=== PATIENT | male | born 1935 | race Caucasian/White ===

== ENCOUNTER 2022-07-19 14:11 | Inpatient (IN) ==
[2022-07-19] MEDS ORDERED: NORCO 5/325 MG TAB PO PRN (15:17)
[2022-07-19 15:43] VITALS: BMI 25.8
[2022-07-19 15:52] LABS: BASOPHILS # (AUTO) 0.1 X10^3/uL (0.0-0.1); BASOPHILS % (AUTO) 1.2 % (0.2-1.0); EOSINOPHILS # (AUTO) 0.2 x10^3/uL (0.0-0.2); EOSINOPHILS % (AUTO) 3.1 % (0.9-2.9); HEMATOCRIT 32.5 % (42.0-54.0); HEMOGLOBIN 10.5 g/dL (13.5-18.0); LYMPHOCYTES # (AUTO) 0.9 X10^3/uL (1.3-2.9); LYMPHOCYTES % (AUTO) 15.7 % (21.0-51.0); MEAN CORPUSCULAR HEMOGLOBIN 28.3 pg (27.0-34.0); MEAN CORPUSCULAR HGB CONC 32.4 g/dL (33.0-35.0); MEAN CORPUSCULAR VOLUME 87.5 fL (80.0-100.0); MEAN PLATELET VOLUME 9.7 fL (7.4-11.0); MONOCYTES # (AUTO) 0.4 x10^3/uL (0.3-0.8); MONOCYTES % (AUTO) 7.3 % (0.0-13.0); NEUTROPHILS # (AUTO) 4.1 x10^3/uL (2.2-4.8); NEUTROPHILS % (AUTO) 72.7 % (42.0-75.0); RED BLOOD COUNT 3.71 X10^6/uL (4.7-6.0); RED CELL DISTRIBUTION WIDTH 17.6 % (11.6-16.5); WHITE BLOOD COUNT 5.7 X10^3/uL (3.6-10.0)
[2022-07-19] MEDS: LASIX PO SCH (16:02)
[2022-07-19] MEDS: SYNTHROID 88 mcg TAB PO SCH (16:02)
[2022-07-19] MEDS: LANOXIN or DIGITEK PO SCH (16:02)
[2022-07-19] MEDS: ZOLOFT PO SCH (16:03)
[2022-07-19 16:08] LABS: ALANINE AMINOTRANSFERASE 38 Units/L (12-78); ALBUMIN 3.5 g/dL (3.4-5.0); ALKALINE PHOSPHATASE 90 Units/L (46-116); ASPARTATE AMINO TRANSFERASE 35 Units/L (15-37); BLOOD UREA NITROGEN 56 mg/dL (7-18); CALCIUM 8.5 mg/dL (8.5-10.1); CARBON DIOXIDE 24.5 mmol/L (21-32); CHLORIDE 104 mmol/L (98-107); COR NA(FOR HYPERGLY) 140 mmol/L (136-145); CREATININE 2.37 mg/dL (0.70-1.30); DIGOXIN 0.75 ng/mL (0.9-2); MAGNESIUM 2.1 mg/dL (2.0-2.9); SODIUM 138 mmol/L (136-145); TOTAL PROTEIN 7.4 g/dL (6.4-8.2); eGFR NON BLACK RACES 28 (>60)
[2022-07-19] MEDS: NS 1,000 ML IV 1,000 ML IV SCH (16:12)
[2022-07-19] MEDS: VISTARIL PO SCH ×2 (17:35→21:23)
[2022-07-19 18:01] LABS: BILIRUBIN,URINE NEGATIVE (NEGATIVE); BLOOD/HEMOGLOBIN,URINE NEGATIVE (NEGATIVE); GLUCOSE, URINE NEGATIVE (NEGATIVE); KETONES,URINE NEGATIVE (NEGATIVE); LEUKOCYTE ESTERASE ,URINE NEGATIVE (NEGATIVE); NITRITES,URINE NEGATIVE (NEGATIVE); PROTEIN,URINE NEGATIVE (NEGATIVE); UROBILINOGEN,URINE NORMAL (NORMAL)
[2022-07-19 18:03] LABS: APPEARANCE,URINE CLEAR (CLEAR); COLOR,URINE PALE YELLOW (YELLOW)
--- NOTE | 2022-07-19 18:10 | DR.H&P ---
H&P - History & Physical for Day of: H&P Date: 07/19/22 - Chief Complaint Chief Complaint: severe pain to right eye and head - History of Present Illness History of Present Illness: PT IS A 87 WM, ADMITTED FROM DR VALLE OFFICE FOR UNCONTROLLED PHN. PT WAS DIAGNOSED WITH SHINGLES ~3 WEEKS AGO AND COMPLETED ORAL VALTREX AND PO STEROIDS. PT WAS TREATED WITH GABAPENT AND LYRICA WITH POOR SIDE EFFECTS INCLUDING HALUCINATIONS. PT WAS REFERRED BY DR NICOLE FOR TREATMENT OF PERSISTENT NEURALGIA. PT HAD CT OF HIS HEAD IN THE ER THIS PAST WEEK. PT REPORTS PMH OF HTN, RENAL DISEASE, AFIB, OA, CVA. PT WAS STARTED ON TRILEPTAL RECOMMENDED BY NEUROLOGY AND COMPLAINED SEVERE BURNING ALL OVER HIS BODY WITH CONFUSION AND RESTLESSNESS. - Past Medical History Past Medical History: Arthritis, Coronary Artery Disease, CVA, Dyslipidemia, GERD, Hypertension, Hypothyroidism Additional Medical History: AFIB - Past Surgical History Surgical History: Cholecystectomy - Family History Family Medical History: Coronary Artery Disease, Heart Failure, Sudden Cardiac , Hypertension - Social History Does patient currently use any type of tobacco product: No Have you used tobacco products in the last 12 months: No Alcohol Use: None Drug Use: None - Medications Home Medications: gabapentin Allergy (Unknown, Verified 07/19/22 16:04) allopurinol Allergy (Verified 07/19/22 16:04) oxcarbazepine [From Trileptal] Allergy (Verified 07/19/22 17:05) pregabalin [From Lyrica] Allergy (Verified 07/16/22 06:32) CONTINUE taking the following medications amitriptyline 10 mg tablet 1 tab PO QPM 07/19/22 [History] atorvastatin 80 mg tablet 1 tab PO QDAY 07/19/22 [History] hydrocodone 7.5 mg-acetaminophen 325 mg tablet 1 tab PO QID PRN 07/19/22 [History] levothyroxine 88 mcg tablet 1 tab PO QDAY 07/19/22 [History] lorazepam 1 mg tablet 0.5 - 1 tab PO TID PRN 07/19/22 [History] meclizine 25 mg tablet 1 tab PO TID PRN vertigo 07/19/22 [History] metoprolol tartrate 25 mg tablet 1 tab PO BID 07/19/22 [History] prednisone 2.5 mg tablet 1 tab PO BID 07/19/22 [History] rivaroxaban 15 mg tablet (Xarelto) 1 tab PO QPM 07/19/22 [History] sertraline 50 mg tablet 1 tab PO QDAY 07/19/22 [History] tamsulosin 0.4 mg capsule 1 cap PO QPM 07/19/22 [History] valacyclovir 1 gram tablet 1 tab PO TID 07/19/22 [History] - Review of Systems Constitutional: Weakness, Malaise Eyes: Pain ENT: No Symptoms Reported Respiratory: No Symptoms Reported Cardiovascular: No Symptoms Reported Gastrointestinal: Nausea Genitourinary: No Symptoms Reported Musculoskeletal: No Symptoms Reported Skin: No Symptoms Reported Neurological: Weakness, Confusion, Other (INTENSE HEADACHES) - Physical Exam Vital Signs: Temperature 97.5 F Pulse Rate [Right Radial] 101 Respiratory Rate 20 Blood Pressure [Right Arm] 156/76 Blood Pressure 147/65 O2 Sat by Pulse Oximetry 96 Eyes: Pain (LOCALIZED TO RIGHT EYE (UNDER CARE OF FAMILY VISION)) Ear: Normal Nose: Normal Throat: Normal Respiratory: Clear Throughout Cardiovascular: Irregular (AFIB). negative: Murmur, Edema : Normal Auscultation: Bowel Sounds: Normal Palpation: Normal Tenderness: Normal Skin: Decreased Turgur, Red (VERY MILD REDNESS LOCALIZED TO RIGHT FACE WITHOUT ANY LESIONS) Musculoskeletal: Normal Psychiatric: Anxiety Mood Description: Depressed Affect: Anxious, Depressed Speech Pattern: Clear, Appropriate - Assessment/Plan (1) Post herpetic neuralgia Status: Acute Plan: ADMIT, PAIN CONTROL. GENTLE IV HYDRATION, VERIFY HOME MEDICATION. ADMISSION LABS, DIGOXIN LEVEL. FALL PRECAUTIONS, BP CONTROL (2) Afib Status: Acute (3) Hypertension Status: Acute (4) Renal disease Status: Acute (5) Herpes zoster with ophthalmic complication Qualifiers: Herpes zoster ocular complication detail: keratoconjunctivitis Qualified Code(s): B02.33 - Zoster keratitis Status: Acute (6) Medication reaction Status: Acute - Allergies Allergies/Adverse Reactions: Allergies Allergy/AdvReac Type Severity Reaction Status Date / Time gabapentin Allergy Unknown Verified 07/19/22 16:04 allopurinol Allergy Verified 07/19/22 16:04 oxcarbazepine Allergy Verified 07/19/22 17:05 [From Trileptal] pregabalin [From Lyrica] Allergy Verified 07/16/22 06:32
[2022-07-19] MEDS: SEROquel TAB 25 mg PO SCH (20:39)
[2022-07-19] MEDS: FLOMAX PO SCH (20:40)
[2022-07-19] MEDS: LOPRESSOR TAB 25 MG PO SCH (20:40)
[2022-07-19] MEDS: XARELTO PO SCH (20:40)
[2022-07-19] MEDS: COLACE CAP 100 MG PO SCH (20:40)
[2022-07-20] MEDS: NORCO 5/325 MG TAB PO PRN ×4 (02:21→19:09)
[2022-07-20] MEDS: VISTARIL PO SCH ×3 (05:24→21:18)
[2022-07-20] MEDS: NS 1,000 ML IV 1,000 ML IV SCH ×3 (05:24→22:10)
[2022-07-20 06:38] LABS: BASOPHILS % (AUTO) 0.8 % (0.2-1.0); EOSINOPHILS # (AUTO) 0.2 x10^3/uL (0.0-0.2); EOSINOPHILS % (AUTO) 3.6 % (0.9-2.9); HEMATOCRIT 31.2 % (42.0-54.0); HEMOGLOBIN 10.3 g/dL (13.5-18.0); LYMPHOCYTES # (AUTO) 0.9 X10^3/uL (1.3-2.9); LYMPHOCYTES % (AUTO) 14.7 % (21.0-51.0); MEAN CORPUSCULAR HEMOGLOBIN 28.7 pg (27.0-34.0); MEAN CORPUSCULAR VOLUME 87.1 fL (80.0-100.0); MONOCYTES # (AUTO) 0.6 x10^3/uL (0.3-0.8); MONOCYTES % (AUTO) 9.3 % (0.0-13.0); NEUTROPHILS # (AUTO) 4.3 x10^3/uL (2.2-4.8); NEUTROPHILS % (AUTO) 71.6 % (42.0-75.0); RED BLOOD COUNT 3.58 X10^6/uL (4.7-6.0); RED CELL DISTRIBUTION WIDTH 17.5 % (11.6-16.5)
[2022-07-20 06:52] LABS: ALANINE AMINOTRANSFERASE 36 Units/L (12-78); ALBUMIN 3.4 g/dL (3.4-5.0); ALKALINE PHOSPHATASE 92 Units/L (46-116); ASPARTATE AMINO TRANSFERASE 32 Units/L (15-37); BLOOD UREA NITROGEN 51 mg/dL (7-18); CALCIUM 8.4 mg/dL (8.5-10.1); CARBON DIOXIDE 21.1 mmol/L (21-32); CHLORIDE 105 mmol/L (98-107); CREATININE 2.14 mg/dL (0.70-1.30); SODIUM 137 mmol/L (136-145); TOTAL PROTEIN 7.2 g/dL (6.4-8.2); eGFR NON BLACK RACES 31 (>60)
[2022-07-20] MEDS: LOPRESSOR TAB 25 MG PO SCH ×2 (08:53→21:19)
[2022-07-20] MEDS: SYNTHROID 88 mcg TAB PO SCH (08:53)
[2022-07-20] MEDS: ZOLOFT PO SCH (08:53)
[2022-07-20] MEDS: LASIX PO SCH (08:53)
[2022-07-20] MEDS: PROTONIX INJ 40 MG VIAL IVP SCH (08:54)
[2022-07-20] MEDS: MORPHINE SULFATE INJ 2 MG INJ IVP PRN ×4 (09:00→21:25)
--- NOTE | 2022-07-20 13:15 | PCM.PROG ---
Progress Note - Progress Note for Day of Date of Exam: 07/20/22 - Subjective Subjective: PT IS A 87 WM, ADMITTED FROM DR VALLE OFFICE FOR UNCONTROLLED PHN. PT WAS DIAGNOSED WITH SHINGLES ~3 WEEKS AGO AND COMPLETED ORAL VALTREX AND PO STEROIDS. PT WAS TREATED WITH GABAPENT AND LYRICA WITH POOR SIDE EFFECTS INCLUDING HALUCINATIONS. PT WAS REFERRED BY DR NICOLE FOR TREATMENT OF PERSISTENT NEURALGIA. PT HAD CT OF HIS HEAD IN THE ER THIS PAST WEEK. PT REPORTS PMH OF HTN, RENAL DISEASE, AFIB, OA, CVA. PT WAS STARTED ON TRILEPTAL RECOMMENDED BY NEUROLOGY AND COMPLAINED SEVERE BURNING ALL OVER HIS BODY WITH CONFUSION AND RESTLESSNESS. PT'S RENAL FUNCTION WAS SLIGHTLY IMPROVED THIS AM. PT REPORTS HIS PAIN HAS CONTINUED WITHOUT MINIMAL RELIEF WITH NORCO. WE ADDED MORPHINE FOR PAIN CONTROL. PT ALSO REPORTS HE HAS CONTINUED TO HAD RESTLESSNESS AND COULD NOT SLEEP ALL NIGHT DUE TO PAIN. - Past Medical Family Social History Past Med/Fam/Surg Hx: No changes since H&P Allergies: Allergies gabapentin Allergy (Unknown, Verified 07/19/22 16:04) allopurinol Allergy (Verified 07/19/22 16:04) oxcarbazepine [From Trileptal] Allergy (Verified 07/19/22 17:05) makes burn worse pregabalin [From Lyrica] Allergy (Verified 07/16/22 06:32) - Review of Systems ROS: No change since H&P - Vital Signs and I&O's Vital Signs: Temperature 97.7 F Pulse Rate [Right Radial] 68 Respiratory Rate 18 Blood Pressure [Right Arm] 160/75 Blood Pressure 147/65 O2 Sat by Pulse Oximetry 94 Intake and Output: Intake & Output 07/18/22 07/19/22 07/20/22 07/21/22 11:59 11:59 11:59 11:59 Intake Total 950 / 950 Output Total 200 / 200 Balance 750 / 750 - Physical Exam Oriented: Person Eyes: Pain (LOCALIZED TO RIGHT EYE (UNDER CARE OF FAMILY VISION)) Ear: Normal Nose: Normal Throat: Normal Respiratory: Diminished Cardiovascular: Irregular (AFIB). negative: Murmur, Edema : Normal Auscultation: Bowel Sounds: Normal Tenderness: Normal Skin: Decreased Turgur, Red (VERY MILD REDNESS LOCALIZED TO RIGHT FACE WITHOUT ANY LESIONS) Musculoskeletal: Normal Psychiatric: Anxiety Mood Description: Depressed Affect: Anxious, Depressed Speech Pattern: Clear, Appropriate - Laboratory and Diagnostics Result Diagrams: 07/20/22 05:15 07/20/22 05:15 Labs: Laboratory WBC 6.0 X10^3/uL (3.6-10.0) 07/20/22 05:15 RBC 3.58 X10^6/uL (4.7-6.0) L 07/20/22 05:15 Hgb 10.3 g/dL (13.5-18.0) L 07/20/22 05:15 Hct 31.2 % (42.0-54.0) L 07/20/22 05:15 MCV 87.1 fL (80.0-100.0) 07/20/22 05:15 MCH 28.7 pg (27.0-34.0) 07/20/22 05:15 MCHC 33.0 g/dL (33.0-35.0) 07/20/22 05:15 RDW 17.5 % (11.6-16.5) H 07/20/22 05:15 Plt Count 135 X10^3/uL (150.0-450.0) L 07/20/22 05:15 MPV 10.0 fL (7.4-11.0) 07/20/22 05:15 Neut % (Auto) 71.6 % (42.0-75.0) 07/20/22 05:15 Lymph % (Auto) 14.7 % (21.0-51.0) L 07/20/22 05:15 [place] % (Auto) 9.3 % (0.0-13.0) 07/20/22 05:15 Eos % (Auto) 3.6 % (0.9-2.9) H 07/20/22 05:15 Baso % (Auto) 0.8 % (0.2-1.0) 07/20/22 05:15 Neut # (Auto) 4.3 x10^3/uL (2.2-4.8) 07/20/22 05:15 Lymph # (Auto) 0.9 X10^3/uL (1.3-2.9) L 07/20/22 05:15 [place] # (Auto) 0.6 x10^3/uL (0.3-0.8) 07/20/22 05:15 Eos # (Auto) 0.2 x10^3/uL (0.0-0.2) 07/20/22 05:15 Baso # (Auto) 0.0 X10^3/uL (0.0-0.1) 07/20/22 05:15 Absolute Nucleated RBC 0.0 /100WBC 07/20/22 05:15 Sodium 137 mmol/L (136-145) 07/20/22 05:15 Corrected Sodium TNP 07/20/22 05:15 Potassium 3.8 mmol/L (3.5-5.1) 07/20/22 05:15 Chloride 105 mmol/L (98-107) 07/20/22 05:15 Carbon Dioxide 21.1 mmol/L (21-32) 07/20/22 05:15 BUN 51 mg/dL (7-18) H 07/20/22 05:15 Creatinine 2.14 mg/dL (0.70-1.30) H 07/20/22 05:15 Est GFR (MDRD) Af Amer 38 (>60) L 07/20/22 05:15 Est GFR (MDRD) Non-Af 31 (>60) L 07/20/22 05:15 Glucose 86 mg/dL (65-99) 07/20/22 05:15 Calcium 8.4 mg/dL (8.5-10.1) L 07/20/22 05:15 Corrected Calcium TNP 07/20/22 05:15 Magnesium 2.1 mg/dL (2.0-2.9) 07/19/22 15:41 Total Bilirubin 0.50 mg/dL (0.2-1.0) 07/20/22 05:15 AST 32 Units/L (15-37) 07/20/22 05:15 ALT 36 Units/L (12-78) 07/20/22 05:15 Alkaline Phosphatase 92 Units/L (46-116) 07/20/22 05:15 Total Protein 7.2 g/dL (6.4-8.2) 07/20/22 05:15 Albumin 3.4 g/dL (3.4-5.0) 07/20/22 05:15 Globulin 3.8 g/dL (2.5-4.5) 07/20/22 05:15 Albumin/Globulin Ratio 0.9 Ratio (1.1-2.1) L 07/20/22 05:15 Specimen Type Clean catch urine 07/19/22 17:50 Urine Color Pale yellow (YELLOW) 07/19/22 17:50 Urine Appearance Clear (CLEAR) 07/19/22 17:50 Urine pH 6.0 (5.0 - 8.0) 07/19/22 17:50 Ur Specific [place] 1.025 (1.000-1.030) 07/19/22 17:50 Urine Protein Negative (NEGATIVE) 07/19/22 17:50 Urine Glucose (UA) Negative (NEGATIVE) 07/19/22 17:50 Urine Ketones Negative (NEGATIVE) 07/19/22 17:50 Urine Blood Negative (NEGATIVE) 07/19/22 17:50 Urine Nitrite Negative (NEGATIVE) 07/19/22 17:50 Urine Bilirubin Negative (NEGATIVE) 07/19/22 17:50 Urine Urobilinogen Normal (NORMAL) 07/19/22 17:50 Ur Leukocyte Esterase Negative (NEGATIVE) 07/19/22 17:50 Digoxin 0.75 ng/mL (0.9-2) L 07/19/22 15:41 - Plan (1) Post herpetic neuralgia Status: Acute Plan: ADMIT,GENTLE IV HYDRATION, VERIFY HOME MEDICATION. ADMISSION LABS, DIGOXIN LEVEL. FALL PRECAUTIONS, BP CONTROL. PRN VISTARIL FOR ITCHING FROM MEDICATION REACTION PRIOR TO ADMISSION (2) Afib Status: Acute (3) Hypertension Status: Acute (4) Renal disease Status: Acute (5) Herpes zoster with ophthalmic complication Status: Acute Qualifiers: Herpes zoster ocular complication detail: keratoconjunctivitis Qualified Code(s): B02.33 - Zoster keratitis (6) Medication reaction Status: Acute
[2022-07-20] MEDS: FLOMAX PO SCH (21:18)
[2022-07-20] MEDS: XARELTO PO SCH (21:18)
[2022-07-20] MEDS: SEROquel TAB 25 mg PO SCH (21:19)
[2022-07-20] MEDS: COLACE CAP 100 MG PO SCH (21:19)
[2022-07-21] MEDS: NORCO 5/325 MG TAB PO PRN ×3 (01:14→17:18)
[2022-07-21] MEDS: MORPHINE SULFATE INJ 2 MG INJ IVP PRN (04:32)
[2022-07-21] MEDS: VISTARIL PO SCH ×3 (05:24→21:26)
[2022-07-21 06:30] LABS: BASOPHILS # (AUTO) 0.1 X10^3/uL (0.0-0.1); BASOPHILS % (AUTO) 1.2 % (0.2-1.0); EOSINOPHILS # (AUTO) 0.3 x10^3/uL (0.0-0.2); EOSINOPHILS % (AUTO) 4.7 % (0.9-2.9); HEMATOCRIT 33.8 % (42.0-54.0); HEMOGLOBIN 10.9 g/dL (13.5-18.0); LYMPHOCYTES % (AUTO) 17.6 % (21.0-51.0); MEAN CORPUSCULAR HEMOGLOBIN 28.4 pg (27.0-34.0); MEAN CORPUSCULAR HGB CONC 32.3 g/dL (33.0-35.0); MEAN CORPUSCULAR VOLUME 88.1 fL (80.0-100.0); MEAN PLATELET VOLUME 9.7 fL (7.4-11.0); MONOCYTES # (AUTO) 0.6 x10^3/uL (0.3-0.8); MONOCYTES % (AUTO) 10.9 % (0.0-13.0); NEUTROPHILS # (AUTO) 3.8 x10^3/uL (2.2-4.8); NEUTROPHILS % (AUTO) 65.6 % (42.0-75.0); RED BLOOD COUNT 3.83 X10^6/uL (4.7-6.0); RED CELL DISTRIBUTION WIDTH 17.8 % (11.6-16.5); WHITE BLOOD COUNT 5.8 X10^3/uL (3.6-10.0)
[2022-07-21 06:47] LABS: ALANINE AMINOTRANSFERASE 40 Units/L (12-78); ALBUMIN 3.6 g/dL (3.4-5.0); ALKALINE PHOSPHATASE 102 Units/L (46-116); ASPARTATE AMINO TRANSFERASE 36 Units/L (15-37); BLOOD UREA NITROGEN 48 mg/dL (7-18); CALCIUM 8.4 mg/dL (8.5-10.1); CHLORIDE 105 mmol/L (98-107); CREATININE 2.13 mg/dL (0.70-1.30); SODIUM 138 mmol/L (136-145); TOTAL PROTEIN 7.7 g/dL (6.4-8.2); eGFR NON BLACK RACES 31 (>60)
[2022-07-21] MEDS: SYNTHROID 88 mcg TAB PO SCH (09:25)
[2022-07-21] MEDS: ZOLOFT PO SCH (09:25)
[2022-07-21] MEDS: LOPRESSOR TAB 25 MG PO SCH ×2 (09:25→21:26)
[2022-07-21] MEDS: PROTONIX INJ 40 MG VIAL IVP SCH (09:25)
[2022-07-21] MEDS: LASIX PO SCH (09:25)
[2022-07-21] MEDS: DILAUDID INJ IVP PRN ×2 (14:05→17:00)
[2022-07-21] MEDS: NS 1,000 ML IV 1,000 ML IV SCH (14:06)
[2022-07-21] MEDS: LANOXIN or DIGITEK PO SCH (17:16)
[2022-07-21] MEDS: SEROquel TAB 25 mg PO SCH (21:26)
[2022-07-21] MEDS: XARELTO PO SCH (21:26)
[2022-07-21] MEDS: FLOMAX PO SCH (21:26)
[2022-07-21] MEDS: COLACE CAP 100 MG PO SCH (21:26)
[2022-07-22] MEDS: NS 1,000 ML IV 1,000 ML IV SCH ×3 (00:51→13:27)
[2022-07-22] MEDS: VISTARIL PO SCH ×3 (05:08→21:06)
[2022-07-22] MEDS: NORCO 5/325 MG TAB PO PRN ×2 (05:10→15:51)
[2022-07-22 05:47] LABS: BASOPHILS % (AUTO) 0.9 % (0.2-1.0); EOSINOPHILS # (AUTO) 0.2 x10^3/uL (0.0-0.2); EOSINOPHILS % (AUTO) 4.2 % (0.9-2.9); HEMATOCRIT 30.7 % (42.0-54.0); HEMOGLOBIN 10.1 g/dL (13.5-18.0); LYMPHOCYTES # (AUTO) 0.7 X10^3/uL (1.3-2.9); LYMPHOCYTES % (AUTO) 13.2 % (21.0-51.0); MEAN CORPUSCULAR HEMOGLOBIN 28.5 pg (27.0-34.0); MEAN CORPUSCULAR VOLUME 86.3 fL (80.0-100.0); MEAN PLATELET VOLUME 9.6 fL (7.4-11.0); MONOCYTES # (AUTO) 0.6 x10^3/uL (0.3-0.8); MONOCYTES % (AUTO) 10.7 % (0.0-13.0); NEUTROPHILS # (AUTO) 3.8 x10^3/uL (2.2-4.8); RED BLOOD COUNT 3.55 X10^6/uL (4.7-6.0); RED CELL DISTRIBUTION WIDTH 17.7 % (11.6-16.5); WHITE BLOOD COUNT 5.3 X10^3/uL (3.6-10.0)
[2022-07-22 05:59] LABS: ALANINE AMINOTRANSFERASE 39 Units/L (12-78); ALBUMIN 3.1 g/dL (3.4-5.0); ALKALINE PHOSPHATASE 97 Units/L (46-116); ASPARTATE AMINO TRANSFERASE 31 Units/L (15-37); BLOOD UREA NITROGEN 48 mg/dL (7-18); CALCIUM 8.1 mg/dL (8.5-10.1); CARBON DIOXIDE 24.3 mmol/L (21-32); CHLORIDE 107 mmol/L (98-107); COR CA(FOR HYPOALB) 8.8 mg/dL (8.5-10.1); CREATININE 2.31 mg/dL (0.70-1.30); SODIUM 139 mmol/L (136-145); TOTAL PROTEIN 6.7 g/dL (6.4-8.2); eGFR NON BLACK RACES 29 (>60)
[2022-07-22] MEDS: SYNTHROID 88 mcg TAB PO SCH (08:22)
[2022-07-22] MEDS: LOPRESSOR TAB 25 MG PO SCH ×2 (08:23→21:06)
[2022-07-22] MEDS: PROTONIX INJ 40 MG VIAL IVP SCH (08:23)
[2022-07-22] MEDS: ZOLOFT PO SCH (08:23)
[2022-07-22] MEDS: LASIX PO SCH (08:23)
[2022-07-22] MEDS: DILAUDID INJ IVP PRN (08:24)
--- NOTE | 2022-07-22 08:48 | PCM.PROG ---
Progress Note Progress Note for Day of Date of Exam: 07/21/22 Subjective Subjective: PT IS A 87 WM, ADMITTED FROM DR VALLE OFFICE FOR UNCONTROLLED PHN. PT WAS DIAGNOSED WITH SHINGLES ~3 WEEKS AGO AND COMPLETED ORAL VALTREX AND PO STEROIDS. PT WAS TREATED WITH GABAPENTIN AND LYRICA WITH POOR SIDE EFFECTS INCLUDING HALLUCINATIONS. PT WAS REFERRED BY DR NICOLE FOR TREATMENT OF PERSISTENT NEURALGIA. PT HAD CT OF HIS HEAD IN THE ER THIS PAST WEEK. PT REPORTS PMH OF HTN, RENAL DISEASE, AFIB, OA, CVA. PT WAS STARTED ON TRILEPTAL RECOMMENDED BY NEUROLOGY AND COMPLAINED SEVERE BURNING ALL OVER HIS BODY WITH CONFUSION AND RESTLESSNESS. THIS MORNING PATIENT RESTING IN BED. LABS: WBC 5.8, HGB 10.9, PLT 151, NA 138, K 3.6, CREATININE 2.13, GLUCOSE 87. HE STILL REPORTS PAIN HAS CONTINUED WITH BRIEF RELIEF FROM MORPHINE. WILL CHANGE MORPHINE TO DILAUDID FOR PAIN CONTROL. OTHERWISE WILL CONTINUE WITH CURRENT TREATMENT PLAN. CONTINUE TO MONITOR AND FOLLOW UP WITH AM LABS. Past Medical Family Social History Past Med/Fam/Surg Hx: No changes since H&P Allergies: Allergies gabapentin Allergy (Unknown, Verified 07/19/22 16:04) allopurinol Allergy (Verified 07/19/22 16:04) oxcarbazepine [From Trileptal] Allergy (Verified 07/19/22 17:05) makes burn worse pregabalin [From Lyrica] Allergy (Verified 07/16/22 06:32) Review of Systems ROS: No change since H&P Vital Signs and I&O's Vital Signs: Temperature 97.6 F Pulse Rate [Right Radial] 70 Pulse Rate 85 Respiratory Rate 23 Blood Pressure [Right Arm] 143/63 Blood Pressure 147/65 O2 Sat by Pulse Oximetry 95 Intake and Output: Intake & Output 07/19/22 07/20/22 07/21/22 07/22/22 23:59 23:59 23:59 23:59 Intake Total 530 / 530 2376 / 2376 2510 / 2510 442 / 442 Output Total 200 / 200 Balance 330 / 330 2376 / 2376 2510 / 2510 442 / 442 Physical Exam Oriented: Person Eyes: Pain (LOCALIZED TO RIGHT EYE (UNDER CARE OF FAMILY VISION)) Ear: Normal Nose: Normal Throat: Normal Respiratory: Diminished Cardiovascular: Irregular (AFIB); negative Murmur or Edema : Normal Auscultation: Bowel Sounds: Normal Tenderness: Normal Skin: Decreased Turgur and Red (VERY MILD REDNESS LOCALIZED TO RIGHT FACE WITHOUT ANY LESIONS) Musculoskeletal: Normal Psychiatric: Anxiety Mood Description: Depressed Affect: Anxious and Depressed Speech Pattern: Clear and Appropriate Laboratory and Diagnostics Result Diagrams: 07/22/22 05:17 07/22/22 05:17 Labs: Laboratory WBC 5.3 X10^3/uL (3.6-10.0) 07/22/22 05:17 RBC 3.55 X10^6/uL (4.7-6.0) L 07/22/22 05:17 Hgb 10.1 g/dL (13.5-18.0) L 07/22/22 05:17 Hct 30.7 % (42.0-54.0) L 07/22/22 05:17 MCV 86.3 fL (80.0-100.0) 07/22/22 05:17 MCH 28.5 pg (27.0-34.0) 07/22/22 05:17 MCHC 33.0 g/dL (33.0-35.0) 07/22/22 05:17 RDW 17.7 % (11.6-16.5) H 07/22/22 05:17 Plt Count 133 X10^3/uL (150.0-450.0) L 07/22/22 05:17 MPV 9.6 fL (7.4-11.0) 07/22/22 05:17 Neut % (Auto) 71.0 % (42.0-75.0) 07/22/22 05:17 Lymph % (Auto) 13.2 % (21.0-51.0) L 07/22/22 05:17 [place] % (Auto) 10.7 % (0.0-13.0) 07/22/22 05:17 Eos % (Auto) 4.2 % (0.9-2.9) H 07/22/22 05:17 Baso % (Auto) 0.9 % (0.2-1.0) 07/22/22 05:17 Neut # (Auto) 3.8 x10^3/uL (2.2-4.8) 07/22/22 05:17 Lymph # (Auto) 0.7 X10^3/uL (1.3-2.9) L 07/22/22 05:17 [place] # (Auto) 0.6 x10^3/uL (0.3-0.8) 07/22/22 05:17 Eos # (Auto) 0.2 x10^3/uL (0.0-0.2) 07/22/22 05:17 Baso # (Auto) 0.0 X10^3/uL (0.0-0.1) 07/22/22 05:17 Absolute Nucleated RBC 0.0 /100WBC 07/22/22 05:17 Sodium 139 mmol/L (136-145) 07/22/22 05:17 Corrected Sodium TNP 07/22/22 05:17 Potassium 4.2 mmol/L (3.5-5.1) 07/22/22 05:17 Chloride 107 mmol/L (98-107) 07/22/22 05:17 Carbon Dioxide 24.3 mmol/L (21-32) 07/22/22 05:17 BUN 48 mg/dL (7-18) H 07/22/22 05:17 Creatinine 2.31 mg/dL (0.70-1.30) H 07/22/22 05:17 Est GFR (MDRD) Af Amer 35 (>60) L 07/22/22 05:17 Est GFR (MDRD) Non-Af 29 (>60) L 07/22/22 05:17 Glucose 93 mg/dL (65-99) 07/22/22 05:17 Calcium 8.1 mg/dL (8.5-10.1) L 07/22/22 05:17 Corrected Calcium 8.8 mg/dL (8.5-10.1) 07/22/22 05:17 Magnesium 2.1 mg/dL (2.0-2.9) 07/19/22 15:41 Total Bilirubin 0.40 mg/dL (0.2-1.0) 07/22/22 05:17 AST 31 Units/L (15-37) 07/22/22 05:17 ALT 39 Units/L (12-78) 07/22/22 05:17 Alkaline Phosphatase 97 Units/L (46-116) 07/22/22 05:17 Total Protein 6.7 g/dL (6.4-8.2) 07/22/22 05:17 Albumin 3.1 g/dL (3.4-5.0) L 07/22/22 05:17 Globulin 3.6 g/dL (2.5-4.5) 07/22/22 05:17 Albumin/Globulin Ratio 0.9 Ratio (1.1-2.1) L 07/22/22 05:17 Specimen Type Clean catch urine 07/19/22 17:50 Urine Color Pale yellow (YELLOW) 07/19/22 17:50 Urine Appearance Clear (CLEAR) 07/19/22 17:50 Urine pH 6.0 (5.0 - 8.0) 07/19/22 17:50 Ur Specific [place] 1.025 (1.000-1.030) 07/19/22 17:50 Urine Protein Negative (NEGATIVE) 07/19/22 17:50 Urine Glucose (UA) Negative (NEGATIVE) 07/19/22 17:50 Urine Ketones Negative (NEGATIVE) 07/19/22 17:50 Urine Blood Negative (NEGATIVE) 07/19/22 17:50 Urine Nitrite Negative (NEGATIVE) 07/19/22 17:50 Urine Bilirubin Negative (NEGATIVE) 07/19/22 17:50 Urine Urobilinogen Normal (NORMAL) 07/19/22 17:50 Ur Leukocyte Esterase Negative (NEGATIVE) 07/19/22 17:50 Digoxin 0.75 ng/mL (0.9-2) L 07/19/22 15:41 Plan (1) Post herpetic neuralgia: Status: Acute Plan: ADMIT,GENTLE IV HYDRATION, VERIFY HOME MEDICATION ADMISSION LABS, DIGOXIN LEVEL FALL PRECAUTIONS, BP CONTROL PRN VISTARIL FOR ITCHING FROM MEDICATION REACTION PRIOR TO ADMISSION (2) Afib: Status: Acute (3) Hypertension: Status: Acute (4) Renal disease: Status: Acute (5) Herpes zoster with ophthalmic complication: Status: Acute Qualifiers: Herpes zoster ocular complication detail: keratoconjunctivitis Qualified Code(s): B02.33 - Zoster keratitis (6) Medication reaction: Status: Acute
[2022-07-22] MEDS ORDERED: FIORICET TAB PO PRN (10:45)
[2022-07-22] MEDS: MIRALAX POWDER (1 DOSE 17 G) PO SCH (11:25)
--- NOTE | 2022-07-22 11:40 | PCM.PROG ---
Progress Note Progress Note for Day of Date of Exam: 07/22/22 Subjective Subjective: PT IS A 87 WM, ADMITTED FROM DR VALLE OFFICE FOR UNCONTROLLED PHN. PT WAS DIAGNOSED WITH SHINGLES ~3 WEEKS AGO AND COMPLETED ORAL VALTREX AND PO STEROIDS. PT WAS TREATED WITH GABAPENTIN AND LYRICA WITH POOR SIDE EFFECTS INCLUDING HALLUCINATIONS. PT WAS REFERRED BY DR NICOLE FOR TREATMENT OF PERSISTENT NEURALGIA. PT HAD CT OF HIS HEAD IN THE ER THIS PAST WEEK. PT REPORTS PMH OF HTN, RENAL DISEASE, AFIB, OA, CVA. PT WAS STARTED ON TRILEPTAL RECOMMENDED BY NEUROLOGY AND COMPLAINED SEVERE BURNING ALL OVER HIS BODY WITH CONFUSION AND RESTLESSNESS. THIS MORNING PATIENT IS RESTING IN BED. HE DID NOT FEEL ANY DIFFERENT WITH CHANGE IN PAIN MEDICATION, WILL CHANGE DILAUDID BACK TO MORPHINE. WILL ADD FIORICET FOR HEADACHES. LABS: WBC 5.3, HGB 10.1, PLT 133, NA 139, K 4.2, CREATININE 2.31, GLUCOSE 93. WILL ADD MIRALAX FOR CONSTIPATION. OTHERWISE WILL CONTINUE WITH CURRENT TREATMENT PLAN. CONTINUE TO MONITOR AND FOLLOW UP WITH AM LABS. Past Medical Family Social History Past Med/Fam/Surg Hx: No changes since H&P Allergies: Allergies gabapentin Allergy (Unknown, Verified 07/19/22 16:04) allopurinol Allergy (Verified 07/19/22 16:04) oxcarbazepine [From Trileptal] Allergy (Verified 07/19/22 17:05) makes burn worse pregabalin [From Lyrica] Allergy (Verified 07/16/22 06:32) Review of Systems ROS: No change since H&P Vital Signs and I&O's Vital Signs: Temperature 97.6 F Pulse Rate [Right Radial] 70 Pulse Rate 85 Respiratory Rate 22 Blood Pressure [Right Arm] 143/63 Blood Pressure 147/65 O2 Sat by Pulse Oximetry 95 Intake and Output: Intake & Output 07/19/22 07/20/22 07/21/22 07/22/22 23:59 23:59 23:59 23:59 Intake Total 530 / 530 2376 / 2376 2510 / 2510 442 / 442 Output Total 200 / 200 Balance 330 / 330 2376 / 2376 2510 / 2510 442 / 442 Physical Exam Oriented: Person Eyes: Pain (LOCALIZED TO RIGHT EYE (UNDER CARE OF FAMILY VISION)) Ear: Normal Nose: Normal Throat: Normal Respiratory: Diminished Cardiovascular: Irregular (AFIB); negative Murmur or Edema : Normal Auscultation: Bowel Sounds: Normal Tenderness: Normal Skin: Decreased Turgur and Red (VERY MILD REDNESS LOCALIZED TO RIGHT FACE WITHOUT ANY LESIONS) Musculoskeletal: Normal Psychiatric: Anxiety Mood Description: Depressed Affect: Anxious and Depressed Speech Pattern: Clear and Appropriate Laboratory and Diagnostics Result Diagrams: 07/22/22 05:17 07/22/22 05:17 Labs: Laboratory WBC 5.3 X10^3/uL (3.6-10.0) 07/22/22 05:17 RBC 3.55 X10^6/uL (4.7-6.0) L 07/22/22 05:17 Hgb 10.1 g/dL (13.5-18.0) L 07/22/22 05:17 Hct 30.7 % (42.0-54.0) L 07/22/22 05:17 MCV 86.3 fL (80.0-100.0) 07/22/22 05:17 MCH 28.5 pg (27.0-34.0) 07/22/22 05:17 MCHC 33.0 g/dL (33.0-35.0) 07/22/22 05:17 RDW 17.7 % (11.6-16.5) H 07/22/22 05:17 Plt Count 133 X10^3/uL (150.0-450.0) L 07/22/22 05:17 MPV 9.6 fL (7.4-11.0) 07/22/22 05:17 Neut % (Auto) 71.0 % (42.0-75.0) 07/22/22 05:17 Lymph % (Auto) 13.2 % (21.0-51.0) L 07/22/22 05:17 [place] % (Auto) 10.7 % (0.0-13.0) 07/22/22 05:17 Eos % (Auto) 4.2 % (0.9-2.9) H 07/22/22 05:17 Baso % (Auto) 0.9 % (0.2-1.0) 07/22/22 05:17 Neut # (Auto) 3.8 x10^3/uL (2.2-4.8) 07/22/22 05:17 Lymph # (Auto) 0.7 X10^3/uL (1.3-2.9) L 07/22/22 05:17 [place] # (Auto) 0.6 x10^3/uL (0.3-0.8) 07/22/22 05:17 Eos # (Auto) 0.2 x10^3/uL (0.0-0.2) 07/22/22 05:17 Baso # (Auto) 0.0 X10^3/uL (0.0-0.1) 07/22/22 05:17 Absolute Nucleated RBC 0.0 /100WBC 07/22/22 05:17 Sodium 139 mmol/L (136-145) 07/22/22 05:17 Corrected Sodium TNP 07/22/22 05:17 Potassium 4.2 mmol/L (3.5-5.1) 07/22/22 05:17 Chloride 107 mmol/L (98-107) 07/22/22 05:17 Carbon Dioxide 24.3 mmol/L (21-32) 07/22/22 05:17 BUN 48 mg/dL (7-18) H 07/22/22 05:17 Creatinine 2.31 mg/dL (0.70-1.30) H 07/22/22 05:17 Est GFR (MDRD) Af Amer 35 (>60) L 07/22/22 05:17 Est GFR (MDRD) Non-Af 29 (>60) L 07/22/22 05:17 Glucose 93 mg/dL (65-99) 07/22/22 05:17 Calcium 8.1 mg/dL (8.5-10.1) L 07/22/22 05:17 Corrected Calcium 8.8 mg/dL (8.5-10.1) 07/22/22 05:17 Magnesium 2.1 mg/dL (2.0-2.9) 07/19/22 15:41 Total Bilirubin 0.40 mg/dL (0.2-1.0) 07/22/22 05:17 AST 31 Units/L (15-37) 07/22/22 05:17 ALT 39 Units/L (12-78) 07/22/22 05:17 Alkaline Phosphatase 97 Units/L (46-116) 07/22/22 05:17 Total Protein 6.7 g/dL (6.4-8.2) 07/22/22 05:17 Albumin 3.1 g/dL (3.4-5.0) L 07/22/22 05:17 Globulin 3.6 g/dL (2.5-4.5) 07/22/22 05:17 Albumin/Globulin Ratio 0.9 Ratio (1.1-2.1) L 07/22/22 05:17 Specimen Type Clean catch urine 07/19/22 17:50 Urine Color Pale yellow (YELLOW) 07/19/22 17:50 Urine Appearance Clear (CLEAR) 07/19/22 17:50 Urine pH 6.0 (5.0 - 8.0) 07/19/22 17:50 Ur Specific [place] 1.025 (1.000-1.030) 07/19/22 17:50 Urine Protein Negative (NEGATIVE) 07/19/22 17:50 Urine Glucose (UA) Negative (NEGATIVE) 07/19/22 17:50 Urine Ketones Negative (NEGATIVE) 07/19/22 17:50 Urine Blood Negative (NEGATIVE) 07/19/22 17:50 Urine Nitrite Negative (NEGATIVE) 07/19/22 17:50 Urine Bilirubin Negative (NEGATIVE) 07/19/22 17:50 Urine Urobilinogen Normal (NORMAL) 07/19/22 17:50 Ur Leukocyte Esterase Negative (NEGATIVE) 07/19/22 17:50 Digoxin 0.75 ng/mL (0.9-2) L 07/19/22 15:41 Plan (1) Post herpetic neuralgia: Status: Acute Plan: ADMIT,GENTLE IV HYDRATION, VERIFY HOME MEDICATION ADMISSION LABS, DIGOXIN LEVEL FALL PRECAUTIONS, BP CONTROL PRN VISTARIL FOR ITCHING FROM MEDICATION REACTION PRIOR TO ADMISSION (2) Afib: Status: Acute (3) Hypertension: Status: Acute (4) Renal disease: Status: Acute (5) Herpes zoster with ophthalmic complication: Status: Acute Qualifiers: Herpes zoster ocular complication detail: keratoconjunctivitis Qualified Code(s): B02.33 - Zoster keratitis (6) Medication reaction: Status: Acute
[2022-07-22] MEDS: MORPHINE SULFATE INJ 2 MG INJ IVP PRN ×2 (13:35→19:59)
[2022-07-22] MEDS: FIORICET TAB PO SCH ×2 (16:41→21:06)
[2022-07-22] MEDS: SEROquel TAB 25 mg PO SCH (21:05)
[2022-07-22] MEDS: RESTORIL CAP 15 MG PO PRN (21:05)
[2022-07-22] MEDS: COLACE CAP 100 MG PO SCH (21:05)
[2022-07-22] MEDS: FLOMAX PO SCH (21:06)
[2022-07-22] MEDS: XARELTO PO SCH (21:06)
[2022-07-23] MEDS: NS 1,000 ML IV 1,000 ML IV SCH ×3 (04:04→21:15)
[2022-07-23] MEDS: VISTARIL PO SCH ×3 (05:04→21:14)
[2022-07-23] MEDS: FIORICET TAB PO SCH ×3 (05:05→21:14)
[2022-07-23 06:08] LABS: BASOPHILS % (AUTO) 0.7 % (0.2-1.0); EOSINOPHILS # (AUTO) 0.3 x10^3/uL (0.0-0.2); EOSINOPHILS % (AUTO) 4.9 % (0.9-2.9); HEMATOCRIT 28.2 % (42.0-54.0); HEMOGLOBIN 9.4 g/dL (13.5-18.0); LYMPHOCYTES # (AUTO) 0.6 X10^3/uL (1.3-2.9); LYMPHOCYTES % (AUTO) 11.3 % (21.0-51.0); MEAN CORPUSCULAR HEMOGLOBIN 28.9 pg (27.0-34.0); MEAN CORPUSCULAR HGB CONC 33.3 g/dL (33.0-35.0); MEAN PLATELET VOLUME 9.6 fL (7.4-11.0); MONOCYTES # (AUTO) 0.6 x10^3/uL (0.3-0.8); MONOCYTES % (AUTO) 11.5 % (0.0-13.0); NEUTROPHILS # (AUTO) 3.8 x10^3/uL (2.2-4.8); NEUTROPHILS % (AUTO) 71.6 % (42.0-75.0); RED BLOOD COUNT 3.24 X10^6/uL (4.7-6.0); RED CELL DISTRIBUTION WIDTH 17.6 % (11.6-16.5); WHITE BLOOD COUNT 5.3 X10^3/uL (3.6-10.0)
[2022-07-23 06:18] LABS: ALANINE AMINOTRANSFERASE 40 Units/L (12-78); ALKALINE PHOSPHATASE 91 Units/L (46-116); ASPARTATE AMINO TRANSFERASE 33 Units/L (15-37); BLOOD UREA NITROGEN 53 mg/dL (7-18); CALCIUM 7.9 mg/dL (8.5-10.1); CARBON DIOXIDE 21.7 mmol/L (21-32); CHLORIDE 109 mmol/L (98-107); COR CA(FOR HYPOALB) 8.7 mg/dL (8.5-10.1); SODIUM 142 mmol/L (136-145); TOTAL PROTEIN 6.5 g/dL (6.4-8.2); eGFR NON BLACK RACES 25 (>60)
[2022-07-23] MEDS: MIRALAX POWDER (1 DOSE 17 G) PO SCH (08:48)
[2022-07-23] MEDS: LASIX PO SCH (08:48)
[2022-07-23] MEDS: PROTONIX INJ 40 MG VIAL IVP SCH (08:48)
[2022-07-23] MEDS: LOPRESSOR TAB 25 MG PO SCH ×2 (08:48→20:09)
[2022-07-23] MEDS: ZOLOFT PO SCH (08:49)
[2022-07-23] MEDS: SYNTHROID 88 mcg TAB PO SCH (08:49)
[2022-07-23] MEDS: NORCO 5/325 MG TAB PO PRN ×2 (08:52→17:08)
[2022-07-23] MEDS: MORPHINE SULFATE INJ 2 MG INJ IVP PRN ×2 (11:08→19:48)
[2022-07-23] MEDS: LANOXIN or DIGITEK PO SCH (17:09)
--- NOTE | 2022-07-23 18:18 | PCM.PROG ---
Progress Note - Progress Note for Day of Date of Exam: 07/23/22 - Subjective Subjective: PT IS A 87 WM, ADMITTED FROM DR VALLE OFFICE FOR UNCONTROLLED PHN. PT WAS DIAGNOSED WITH SHINGLES ~3 WEEKS AGO AND COMPLETED ORAL VALTREX AND PO STEROIDS. PT WAS TREATED WITH GABAPENTIN AND LYRICA WITH POOR SIDE EFFECTS INCLUDING HALLUCINATIONS. PT WAS REFERRED BY DR NICOLE FOR TREATMENT OF PERSISTENT NEURALGIA. PT HAD CT OF HIS HEAD IN THE ER THIS PAST WEEK. PT REPORTS PMH OF HTN, RENAL DISEASE, AFIB, OA, CVA. PT WAS STARTED ON TRILEPTAL RECOMMENDED BY NEUROLOGY AND COMPLAINED SEVERE BURNING ALL OVER HIS BODY WITH CONFUSION AND RESTLESSNESS. THIS MORNING PATIENT IS RESTING IN BED. HE DID NOT FEEL ANY DIFFERENT WITH CHANGE IN PAIN MEDICATION, WILL CHANGE DILAUDID BACK TO MORPHINE. WILL ADD FIORICET FOR HEADACHES. ADDED MIRALAX FOR CONSTIPATION. OTHERWISE WILL CONTINUE WITH CURRENT TREATMENT PLAN. CONTINUE TO MONITOR AND FOLLOW UP WITH AM LABS. - Past Medical Family Social History Past Med/Fam/Surg Hx: No changes since H&P Allergies: Allergies gabapentin Allergy (Unknown, Verified 07/19/22 16:04) allopurinol Allergy (Verified 07/19/22 16:04) oxcarbazepine [From Trileptal] Allergy (Verified 07/19/22 17:05) makes burn worse pregabalin [From Lyrica] Allergy (Verified 07/16/22 06:32) - Review of Systems ROS: No change since H&P - Vital Signs and I&O's Vital Signs: Temperature 97.5 F Pulse Rate [Right Radial] 62 Pulse Rate 80 Respiratory Rate 20 Blood Pressure [Right Arm] 113/55 Blood Pressure 147/65 O2 Sat by Pulse Oximetry 96 Intake and Output: Intake & Output 07/21/22 07/22/22 07/23/22 07/24/22 11:59 11:59 11:59 11:59 Intake Total 2306 / 2306 2602 / 2602 1847 / 1847 580 / 580 Balance 2306 / 2306 2602 / 2602 1847 / 1847 580 / 580 - Physical Exam Oriented: Person Eyes: Pain (LOCALIZED TO RIGHT EYE (UNDER CARE OF FAMILY VISION)) Ear: Normal Nose: Normal Throat: Normal Respiratory: Diminished Cardiovascular: Irregular (AFIB). negative: Murmur, Edema : Normal Auscultation: Bowel Sounds: Normal Tenderness: Normal Skin: Decreased [place]urg[place], Red (VERY MILD REDNESS LOCALIZED TO RIGHT FACE WITHOUT ANY LESIONS) Musculoskeletal: Normal Psychiatric: Anxiety Mood Description: Depressed Affect: Anxious, Depressed Speech Pattern: Clear, Appropriate - Laboratory and Diagnostics Result Diagrams: 07/23/22 05:30 07/23/22 05:30 Labs: Laboratory WBC 5.3 X10^3/uL (3.6-10.0) 07/23/22 05:30 RBC 3.24 X10^6/uL (4.7-6.0) L 07/23/22 05:30 Hgb 9.4 g/dL (13.5-18.0) L 07/23/22 05:30 Hct 28.2 % (42.0-54.0) L 07/23/22 05:30 MCV 87.0 fL (80.0-100.0) 07/23/22 05:30 MCH 28.9 pg (27.0-34.0) 07/23/22 05:30 MCHC 33.3 g/dL (33.0-35.0) 07/23/22 05:30 RDW 17.6 % (11.6-16.5) H 07/23/22 05:30 Plt Count 133 X10^3/uL (150.0-450.0) L 07/23/22 05:30 MPV 9.6 fL (7.4-11.0) 07/23/22 05:30 Neut % (Auto) 71.6 % (42.0-75.0) 07/23/22 05:30 Lymph % (Auto) 11.3 % (21.0-51.0) L 07/23/22 05:30 [place] % (Auto) 11.5 % (0.0-13.0) 07/23/22 05:30 Eos % (Auto) 4.9 % (0.9-2.9) H 07/23/22 05:30 Baso % (Auto) 0.7 % (0.2-1.0) 07/23/22 05:30 Neut # (Auto) 3.8 x10^3/uL (2.2-4.8) 07/23/22 05:30 Lymph # (Auto) 0.6 X10^3/uL (1.3-2.9) L 07/23/22 05:30 [place] # (Auto) 0.6 x10^3/uL (0.3-0.8) 07/23/22 05:30 Eos # (Auto) 0.3 x10^3/uL (0.0-0.2) H 07/23/22 05:30 Baso # (Auto) 0.0 X10^3/uL (0.0-0.1) 07/23/22 05:30 Absolute Nucleated RBC 0.0 /100WBC 07/23/22 05:30 Sodium 142 mmol/L (136-145) 07/23/22 05:30 Corrected Sodium TNP 07/23/22 05:30 Potassium 4.2 mmol/L (3.5-5.1) 07/23/22 05:30 Chloride 109 mmol/L (98-107) H 07/23/22 05:30 Carbon Dioxide 21.7 mmol/L (21-32) 07/23/22 05:30 BUN 53 mg/dL (7-18) H 07/23/22 05:30 Creatinine 2.60 mg/dL (0.70-1.30) H 07/23/22 05:30 Est GFR (MDRD) Af Amer 30 (>60) L 07/23/22 05:30 Est GFR (MDRD) Non-Af 25 (>60) L 07/23/22 05:30 Glucose 90 mg/dL (65-99) 07/23/22 05:30 Calcium 7.9 mg/dL (8.5-10.1) L 07/23/22 05:30 Corrected Calcium 8.7 mg/dL (8.5-10.1) 07/23/22 05:30 Magnesium 2.1 mg/dL (2.0-2.9) 07/19/22 15:41 Total Bilirubin 0.40 mg/dL (0.2-1.0) 07/23/22 05:30 AST 33 Units/L (15-37) 07/23/22 05:30 ALT 40 Units/L (12-78) 07/23/22 05:30 Alkaline Phosphatase 91 Units/L (46-116) 07/23/22 05:30 Total Protein 6.5 g/dL (6.4-8.2) 07/23/22 05:30 Albumin 3.0 g/dL (3.4-5.0) L 07/23/22 05:30 Globulin 3.5 g/dL (2.5-4.5) 07/23/22 05:30 Albumin/Globulin Ratio 0.9 Ratio (1.1-2.1) L 07/23/22 05:30 Specimen Type Clean catch urine 07/19/22 17:50 Urine Color Pale yellow (YELLOW) 07/19/22 17:50 Urine Appearance Clear (CLEAR) 07/19/22 17:50 Urine pH 6.0 (5.0 - 8.0) 07/19/22 17:50 Ur Specific [place] 1.025 (1.000-1.030) 07/19/22 17:50 Urine Protein Negative (NEGATIVE) 07/19/22 17:50 Urine Glucose (UA) Negative (NEGATIVE) 07/19/22 17:50 Urine Ketones Negative (NEGATIVE) 07/19/22 17:50 Urine Blood Negative (NEGATIVE) 07/19/22 17:50 Urine Nitrite Negative (NEGATIVE) 07/19/22 17:50 Urine Bilirubin Negative (NEGATIVE) 07/19/22 17:50 Urine Urobilinogen Normal (NORMAL) 07/19/22 17:50 Ur Leukocyte Esterase Negative (NEGATIVE) 07/19/22 17:50 Digoxin 0.75 ng/mL (0.9-2) L 07/19/22 15:41 - Plan (1) Post herpetic neuralgia Status: Acute Plan: ADMIT,GENTLE IV HYDRATION, VERIFY HOME MEDICATION. ADMISSION LABS, DIGOXIN LEVEL. FALL PRECAUTIONS, BP CONTROL. PRN VISTARIL FOR ITCHING FROM MEDICATION REACTION PRIOR TO ADMISSION (2) Afib Status: Acute (3) Hypertension Status: Acute (4) Renal disease Status: Acute (5) Herpes zoster with ophthalmic complication Status: Acute Qualifiers: Herpes zoster ocular complication detail: keratoconjunctivitis Qualified Code(s): B02.33 - Zoster keratitis (6) Medication reaction Status: Acute
[2022-07-23] MEDS: COLACE CAP 100 MG PO SCH (20:09)
[2022-07-23] MEDS: SEROquel TAB 25 mg PO SCH (20:10)
[2022-07-23] MEDS: RESTORIL CAP 15 MG PO PRN (20:10)
[2022-07-23] MEDS: XARELTO PO SCH (20:10)
[2022-07-23] MEDS: FLOMAX PO SCH (20:10)
[2022-07-24] MEDS: VISTARIL PO SCH (05:14)
[2022-07-24] MEDS: MORPHINE SULFATE INJ 2 MG INJ IVP PRN (05:15)
[2022-07-24] MEDS: FIORICET TAB PO SCH (05:15)
[2022-07-24 05:46] LABS: BASOPHILS % (AUTO) 0.9 % (0.2-1.0); EOSINOPHILS # (AUTO) 0.3 x10^3/uL (0.0-0.2); EOSINOPHILS % (AUTO) 5.1 % (0.9-2.9); HEMATOCRIT 31.7 % (42.0-54.0); HEMOGLOBIN 10.3 g/dL (13.5-18.0); LYMPHOCYTES # (AUTO) 0.8 X10^3/uL (1.3-2.9); LYMPHOCYTES % (AUTO) 15.6 % (21.0-51.0); MEAN CORPUSCULAR HEMOGLOBIN 28.4 pg (27.0-34.0); MEAN CORPUSCULAR HGB CONC 32.6 g/dL (33.0-35.0); MEAN CORPUSCULAR VOLUME 87.3 fL (80.0-100.0); MEAN PLATELET VOLUME 9.4 fL (7.4-11.0); MONOCYTES # (AUTO) 0.5 x10^3/uL (0.3-0.8); MONOCYTES % (AUTO) 9.5 % (0.0-13.0); NEUTROPHILS # (AUTO) 3.6 x10^3/uL (2.2-4.8); NEUTROPHILS % (AUTO) 68.9 % (42.0-75.0); RED BLOOD COUNT 3.63 X10^6/uL (4.7-6.0); RED CELL DISTRIBUTION WIDTH 17.6 % (11.6-16.5); WHITE BLOOD COUNT 5.2 X10^3/uL (3.6-10.0)
[2022-07-24 05:54] LABS: BLOOD UREA NITROGEN 50 mg/dL (7-18); CALCIUM 8.6 mg/dL (8.5-10.1); CHLORIDE 109 mmol/L (98-107); CREATININE 2.56 mg/dL (0.70-1.30); SODIUM 144 mmol/L (136-145); eGFR NON BLACK RACES 25 (>60)
[2022-07-24 06:23] LABS: ALANINE AMINOTRANSFERASE 37 Units/L (12-78); ALBUMIN 3.4 g/dL (3.4-5.0); ALKALINE PHOSPHATASE 100 Units/L (46-116); ASPARTATE AMINO TRANSFERASE 31 Units/L (15-37); TOTAL PROTEIN 7.2 g/dL (6.4-8.2)
[2022-07-24] MEDS: LOPRESSOR TAB 25 MG PO SCH (08:57)
[2022-07-24] MEDS: SYNTHROID 88 mcg TAB PO SCH (08:57)
[2022-07-24] MEDS: MIRALAX POWDER (1 DOSE 17 G) PO SCH (08:57)
[2022-07-24] MEDS: ZOLOFT PO SCH (08:57)
[2022-07-24] MEDS: PROTONIX INJ 40 MG VIAL IVP SCH (08:57)
[2022-07-24] MEDS: LASIX PO SCH (08:57)
[2022-07-24] MEDS: NORCO 5/325 MG TAB PO PRN (08:59)
[2022-07-24 10:20] VITALS: BP 139/78
== END 2022-07-24 11:25 | disposition home health service (06) | DRG 74 ==
LOC: MED/SURG → OBSVTOIN 14:41
PROVIDERS: ADMIT Internal Medicine; ATTEND Internal Medicine
DX: I48.91 Unspecified atrial fibrillation; E78.2 Mixed hyperlipidemia; R52 Pain, unspecified; K59.09 Other constipation; N18.9 Chronic kidney disease, unspecified; B02.22 Postherpetic trigeminal neuralgia; T50.905A Adverse effect of unspecified drugs, medicaments and biological substances, initial encounter; I12.9 Hypertensive chronic kidney disease with stage 1 through stage 4 chronic kidney disease, or unspecified chronic kidney disease; B02.39 Other herpes zoster eye disease; E03.8 Other specified hypothyroidism